=== PATIENT | female | born 1950 | race Caucasian/White ===

== ENCOUNTER 2016-12-24 07:15 | Day surgery (SDC) | payer MEDICARE ==
[~2016-12-24] VITALS: Ht 162.6 cm; Wt 70.3 kg
[~2016-12-24 07:15] MED LIST: Sodium Chloride LOK Flush 10 mL Syringe IV PRN; fentaNYL-PF 50 mCg/mL 2 mL Inj IVPUSH PRN
[2016-12-24 07:31] VITALS: BP 132/70; PULSE 86; RESP 16; O2SAT 97
[2016-12-24] MEDS ORDERED: CLOB15CR3 TOP (07:35)
[2016-12-24] MEDS ORDERED: IBUP200C11 PO (07:35)
[2016-12-24] MEDS ORDERED: GLUC1500 PO (07:35)
[2016-12-24] MEDS ORDERED: FLUT9.9S NS (07:35)
[2016-12-24] MEDS ORDERED: CHOL500011 PO (07:35)
[2016-12-24] MEDS ORDERED: VITA1CAP16 PO (07:35)
[2016-12-24] MEDS: 0.9% Sodium Chloride 1,000 ML IV SCH ×2 (07:57→08:19)
[2016-12-24 08:23] VITALS: BP 100/45; PULSE 77; RESP 16; O2SAT 96
[2016-12-24 08:47] VITALS: BP 87/41; PULSE 73; RESP 16; O2SAT 98
[2016-12-24 08:49] VITALS: BP 101/54; PULSE 83; RESP 16; O2SAT 96
--- NOTE | 2016-12-24 08:54 | ENDO ---
[address] [address] ENDOSCOPY PROCEDURE PATIENT: ERIK AGUILAR : 1950 MR#: [id number] ADMIT: 12/24/2016 JOB ID: [id number] DATE OF SERVICE: 12/24/2016 PRIMARY PROVIDER: KYLAH Peña. PROCEDURE: Colonoscopy. INDICATIONS: A 66-year-old female who reports for colon cancer screening. EQUIPMENT: Zenefits-H190DL. SEDATION: 1. Versed 4 mg. 2. Fentanyl 100 mcg. COMPLICATIONS: None identified. BOWEL PREPARATION: Fair. Adequate exam. PROCEDURE INFORMATION: After the risks and benefits were explained, written and verbal informed consent was obtained. The patient was brought into the endoscopy suite and placed into the left lateral decubitus position. Sedation was achieved using the above-stated medications with the addition of oxygen via nasal cannula. A digital rectal examination was accomplished. No significant pathology apart some mild internal hemorrhoids noted. The scope was introduced into the rectum and advanced under direct visualization to the level of the cecum, as identified by the appendiceal orifice and ileocecal valve. The scope was slowly withdrawn to carefully examine the mucosa for any defects or lesions. Multiple direct views were made through the dentate line for exclusion of pathology. The colon was decompressed. Scope removed from the patient who tolerated the procedure well. FINDINGS: Some mild diverticulosis through the sigmoid region. No significant polyps, mass lesions, or inflammatory features identified throughout. ENDOSCOPIC DIAGNOSES: 1. Diverticulosis. 2. Hemorrhoids. RECOMMENDATIONS: Repeat colonoscopy in 10 years' time, sooner should symptoms warrant.
== END 2016-12-24 23:59 | disposition home or self-care (01) ==
LOC: END 07:15
PROVIDERS: ATTEND Internal Medicine Gastroenterology
DX: Z12.11 Encounter for screening for malignant neoplasm of colon (principal); Z85.3 Personal history of malignant neoplasm of breast; K57.30 Diverticulosis of large intestine without perforation or abscess without bleeding; K64.8 Other hemorrhoids
CPT/HCPCS: G0121; G0500; J7030